=== PATIENT | female | born 1970 | race Caucasian/White ===

== ENCOUNTER 2024-06-05 16:15 | Outpatient (RCR) | payer OTHER, SELFPAY | END 2024-06-06 07:35 | disposition home or self-care (01) | PROVIDERS: PCP Nurse Practitioner; Visit Provider Physician Assistant | DX: M25.561 Pain in right knee (principal); G89.29 Other chronic pain; Z51.89 Encounter for other specified aftercare | CPT/HCPCS: 97110; 97112; 97161 ==

== ENCOUNTER 2024-08-12 13:56 | Outpatient (CLI) | payer OTHER, SELFPAY | END 2024-08-12 13:57 | disposition home or self-care (01) | LOC: AMB 08-14 14:46 | PROVIDERS: PCP Physician Assistant; Visit Provider Family Medicine | DX: J11.1 Influenza due to unidentified influenza virus with other respiratory manifestations (principal) | CPT/HCPCS: A0425; A0427 ==

== ENCOUNTER 2024-08-12 14:29 | Emergency (ER) | payer OTHER, SELFPAY ==
[2024-08-12 14:56] VITALS: BP 149/85; PULSE 99; RESP 24; TEMP 36.2; O2SAT 99; BMI 26.6
[2024-08-12] MEDS: LORazepam 2 MG/ML inj 0.5 MG IVP (18:36)
--- NOTE | 2024-08-12 18:52 | ED.GENADULT ---
HPI - General Adult General Chief complaint: Weakness Stated complaint: Influenza Time Seen by Provider: 08/12/24 18:18 Source: patient Mode of arrival: EMS Limitations: no limitations History of Present Illness HPI narrative: 53-year-old female history of anxiety presents today with increasing anxiety over her diagnosis of influenza. Patient states she was diagnosed with influenza a on Tuesday of this week. She has been ill for approximately a week. She has felt short of breath dehydrated weak. She complains of body aches. She has not been vomiting. She denies diarrhea. She denies rashes. She is currently home alone as her is away on a business trip. She feels completely overwhelmed that she has to take care of her college age child, the home and her dog while she is ill. She went to the urgent care yesterday because she felt like she could breathe and she had a chest x-ray which was unremarkable and she was told that this was a normal course of influenza. She has been afebrile now for approximately 2-3 days. Today she felt like she could not breathe and so she called EMS. Per the report, patient was having an anxiety attack when they arrived, hyperventilating. Related Data Home Medications ?Medication ?Instructions ?Recorded ?Confirmed amitriptyline 10 mg tablet 30 mg PO QPM 08/11/24 08/12/24 levothyroxine 88 mcg tablet 88 mcg PO DAILY 08/11/24 08/12/24 metoprolol tartrate 50 mg tablet 50 mg PO BID 08/11/24 08/12/24 triamterene 37.5 1 tab PO QAM 08/11/24 08/12/24 mg-hydrochlorothiazide 25 mg tablet venlafaxine 150 mg 150 mg PO QPM 08/11/24 08/12/24 capsule,extended release 24 hr benzonatate 100 mg capsule 100 mg PO 3XD PRN cough 08/12/24 08/12/24 Allergies Allergy/AdvReac Type Severity Reaction Status Date / Time No Known Drug Allergies Allergy Verified 08/12/24 15:02 Review of Systems Status of ROS: Reports: 10 or more systems reviewed and unremarkable except as noted in History and below Exam Narrative: Exam Narrative: Well-nourished well-developed patient, initially in no acute distress. However as we talked more about her symptoms patient began hyperventilating and started having a panic attack in the exam room. HEENT: Normocephalic atraumatic. Pupils are equally round reactive to light. Extraocular muscles are intact. Conjunctivae are moist without any icterus noted. Moist mucous membranes. Posterior pharynx is normal. Neck is soft without any lymphadenopathy or thyromegaly. No masses are appreciated. Cardiovascular: Heart is regular rate and rhythm S1 and S2 are present without any murmurs. Lungs: Clear to auscultation bilaterally no wheezes rhonchi or rales are appreciated. Patient takes deep breaths without any discomfort. Abdomen: Soft and nontender nondistended with normal bowel sounds. Extremities: Bilateral lower extremities are without edema. A delete that Skin: Well perfused without any obvious rashes. Const: Vital Signs, click to edit/add: Vital Signs - 24 hr 08/12/24 14:56 Temperature 97.2 F L Pulse Rate [Right Pulse Oximeter] 99 Respiratory Rate 24 Blood Pressure [Ri ght Upper Arm] 149/85 H Pulse Oximetry 99 Oxygen Delivery Me thod Room Air Course Course ED Course: Patient was given a dose of IV Ativan. She felt significantly better afterwards. Patient will have friends stay with her for the rest of the evening. Her is coming home around 1:30 in the morning. Patient's vital is stable, no evidence of hypoxia or tachypnea when she is not having a panic attack. She breathes without difficulty. Vital Signs Vital signs: Initial Vital Signs Temperature 97.2 F L 08/12/24 14:56 Temperature Source Temporal Artery Scan 08/12/24 14:56 Pulse Rate 99 08/12/24 14:56 Pulse Rhythm Regular 08/12/24 14:56 Respiratory Rate 24 08/12/24 14:56 Blood Pressure 149/85 H 08/12/24 14:56 Blood Pressure Mean 106 H 08/12/24 14:56 Blood Pressure Position Sitting 08/12/24 14:56 Pulse Oximetry 99 08/12/24 14:56 Oxygen Delivery Method Room Air 08/12/24 14:56 Vital Signs Temperature 97.2 F L 08/12/24 14:56 Pulse Rate 99 08/12/24 14:56 Respiratory Rate 24 08/12/24 14:56 Blood Pressure 149/85 H 08/12/24 14:56 Pulse Oximetry 99 08/12/24 14:56 Oxygen Delivery Method Room Air 08/12/24 14:56 Temperature 97.2 F L 08/12/24 14:56 Pulse Rate 99 08/12/24 14:56 Respiratory Rate 24 08/12/24 14:56 Blood Pressure 149/85 H 08/12/24 14:56 Pulse Oximetry 99 08/12/24 14:56 Oxygen Delivery Method Room Air 08/12/24 14:56 Medications Administered Medications: Generic Name Dose Route Start Last Admin Trade Name Freq PRN Reason Stop Dose Admin Lorazepam 0.5 mg 08/12/24 18:33 08/12/24 18:36 Lorazepam 2 Mg/Ml Inj IVP 08/12/24 18:34 0.5 mg ONCE ONE Administration Medical Decision Making MDM Narrative Medical decision making narrative: 53-year-old female with influenza a, anxiety presenting with a panic attack. Treatment per above. Patient follow-up with her PCP this coming week. Discharge Plan Discharge Clinical Impression: Anxiety, Influenza Patient Disposition: Home, Self-Care Condition: Stable Instructions: Anxiety (ED) Additional Instructions: Recommend you follow-up with your primary care provider this coming week. Prescriptions: No Action levothyroxine 88 mcg tablet 88 mcg PO DAILY amitriptyline 10 mg tablet 30 mg PO QPM venlafaxine 150 mg capsule,extended release 24hr 150 mg PO QPM metoprolol tartrate 50 mg tablet 50 mg PO BID triamterene-hydrochlorothiazid 37.5-25 mg tablet 1 tab PO QAM benzonatate 100 mg capsule 100 mg PO 3XD PRN (Reason: cough) Follow Up/Referrals: Katherine Barnes PA-C [Primary Care Provider] - Stand Alone Forms: [employer] [facility] Info Instructions
[2024-08-12] MEDS: ONDANSETRON 2 MG/ML inj 4 MG IVP (19:23)
[2024-08-12 19:34] VITALS: BP 133/83; PULSE 94; RESP 14
== END 2024-08-12 19:35 | disposition home or self-care (01) ==
PROVIDERS: Emergency Provider Family Medicine; PCP Physician Assistant
DX: F41.0 Panic disorder [episodic paroxysmal anxiety] (principal); J09.X2 Influenza due to identified novel influenza A virus with other respiratory manifestations
CPT/HCPCS: 96374; 96375; 99283; 99284; J2060; J2405